=== PATIENT | female | born 1990 | race Hispanic/Latino ===

== ENCOUNTER 2017-08-17 02:00 | Emergency (ER) | payer OTHER ==
[2017-08-17 03:19] LABS: Basophils # (Auto) 0.1 K/mm3 (0.0-0.1); Basophils % (Auto) 0.8 % (0.0-1.8); Eosinophils # (Auto) 0.4 K/mm3 (0.0-0.4); Eosinophils % (Auto) 4.2 % (0.0-4.3); Hemoglobin 14.5 gm/dl (10.1-14.3); Lymphocytes # (Auto) 4.2 K/mm3 (1.2-5.4); Lymphocytes % (Auto) 44.7 % (13.4-35.0); Mean Corpuscular HGB Conc 34 % (30-34); Mean Corpuscular Hemoglobin 31 pg (28-32); Mean Corpuscular Volume 91 fl (79-97); Monocytes # (Auto) 0.6 K/mm3 (0.0-0.8); Monocytes % (Auto) 6.8 % (0.0-7.3); Platelet Count 187 K/mm3 (140-440); Red Blood Count 4.61 M/mm3 (3.65-5.03); Red Cell Distribution Width 13.8 % (13.2-15.2)
[2017-08-17 03:35] LABS: Alanine Aminotransferase 10 units/L (7-56); Albumin 4.4 g/dL (3.9-5); BUN/Creatinine Ratio 17; Blood Urea Nitrogen 10 mg/dL (7-17); Calcium 8.6 mg/dL (8.4-10.2); Hemolysis Index 29
[2017-08-17 04:01] LABS: Bacteria,Urine 1+ /HPF (Negative); Bilirubin,Urine NEG (Negative); Blood,Urine LG (Negative); Color,Urine Yellow (Yellow); Mucus,Urine FEW /HPF; Urobilinogen,Urine < 2.0 mg/dL (<2.0)
[2017-08-17 04:03] LABS: RBC,Urine > 182.0 /HPF (0.0-6.0)
[2017-08-17] MEDS ORDERED: TORADOL IM ONE (04:33)
--- NOTE | 2017-08-17 04:41 | Emergency Department Report ---
ED Female HPI - General Chief complaint: Abdominal Pain Stated complaint: HEAVY BLEEDING Time Seen by Provider: 08/17/17 04:28 Source: patient Mode of arrival: Ambulatory Limitations: No Limitations - History of Present Illness Initial comments: This is a healthy 26-year-old female who had her first menses since termination of one month ago. She has large amount of bleeding severe pelvic cramping. MD Complaint: vaginal bleeding, pelvic pain -: Gradual, days(s) (2) Severity: severe Quality: cramping Consistency: intermittent Are you Now?: No - Related Data Previous Rx's Medication Instructions Recorded Last Taken Type Ibuprofen [Motrin] 600 mg PO Q8H PRN #30 tablet 02/03/17 Unknown Rx traMADol [Ultram 50 MG tab] 50 mg PO Q6HR PRN #20 tablet 02/03/17 Unknown Rx Allergies Allergy/AdvReac Type Severity Reaction Status Date / Time No Known Allergies Allergy Unverified 02/03/17 14:32 ED Review of Systems ROS: Stated complaint: HEAVY BLEEDING Other details as noted in HPI Comment: All other systems reviewed and negative Constitutional: denies: fever, malaise Cardiovascular: denies: chest pain ED Past Medical Hx - Past Medical History Previous Medical History?: No - Surgical History Past Surgical History?: Yes Additional Surgical History: D&C - Social History Smoking Status: Current Every Day Smoker Substance Use Type: None - Medications Home Medications: Home Medications Medication Instructions Recorded Confirmed Last Taken Type Ibuprofen [Motrin] 600 mg PO Q8H PRN #30 tablet 02/03/17 Unknown Rx traMADol [Ultram 50 MG tab] 50 mg PO Q6HR PRN #20 tablet 02/03/17 Unknown Rx ED Physical Exam - General Limitations: No Limitations General appearance: alert, in no apparent distress - Head Head exam: Present: atraumatic, normocephalic - Eye Eye exam: Present: normal appearance - ENT ENT exam: Present: mucous membranes moist - Neck Neck exam: Present: normal inspection - Respiratory Respiratory exam: Present: normal lung sounds bilaterally. Absent: respiratory distress, wheezes, rales, rhonchi - Cardiovascular Cardiovascular Exam: Present: regular rate, normal rhythm, normal heart sounds. Absent: systolic murmur, diastolic murmur, rubs, gallop - GI/Abdominal GI/Abdominal exam: Present: soft, normal bowel sounds. Absent: distended, tenderness, guarding, rebound - Extremities Exam Extremities exam: Present: normal inspection - Back Exam Back exam: Present: normal inspection - Neurological Exam Neurological exam: Present: alert, oriented X3 - Psychiatric Psychiatric exam: Present: normal affect, normal mood - Skin Skin exam: Present: warm, dry, intact, normal color. Absent: rash ED Course Vital Signs 08/17/17 02:43 Temperature 98.5 F Pulse Rate 75 Respiratory 16 Rate Blood Pressure 128/72 O2 Sat by Pulse 97 Oximetry ED Medical Decision Making - Lab Data Result diagrams: 08/17/17 03:02 08/17/17 03:02 Laboratory Results - last 24 hr 08/17/17 08/17/17 08/17/17 03:02 03:02 03:02 WBC 9.4 RBC 4.61 Hgb 14.5 H Hct 42.0 MCV 91 MCH 31 MCHC 34 RDW 13.8 Plt Count 187 Lymph % (Auto) 44.7 H Giles % (Auto) 6.8 Eos % (Auto) 4.2 Baso % (Auto) 0.8 Lymph # 4.2 Giles # 0.6 Eos # 0.4 Baso # 0.1 Seg Neutrophils % 43.5 Seg Neutrophils # 4.1 Sodium 138 Potassium 4.1 Chloride 99.1 Carbon Dioxide 25 Anion Gap 18 BUN 10 Creatinine 0.6 L Estimated GFR > 60 BUN/Creatinine Ratio 17 Glucose 94 Calcium 8.6 Total Bilirubin 0.20 AST 28 ALT 10 Alkaline Phosphatase 74 Total Protein 7.2 Albumin 4.4 Albumin/Globulin Ratio 1.6 HCG, Quant < 2 Urine Color Urine Turbidity Urine pH Ur Specific [place] Urine Protein Urine Glucose (UA) Urine Ketones Urine Blood Urine Nitrite Urine Bilirubin Urine Urobilinogen Ur Leukocyte Esterase Urine WBC (Auto) Urine RBC (Auto) U Epithel Cells (Auto) Urine Bacteria (Auto) Urine Mucus Blood Type Antibody Screen 08/17/17 08/17/17 03:02 03:31 WBC RBC Hgb Hct MCV MCH MCHC RDW Plt Count Lymph % (Auto) Giles % (Auto) Eos % (Auto) Baso % (Auto) Lymph # Giles # Eos # Baso # Seg Neutrophils % Seg Neutrophils # Sodium Potassium Chloride Carbon Dioxide Anion Gap BUN Creatinine Estimated GFR BUN/Creatinine Ratio Glucose Calcium Total Bilirubin AST ALT Alkaline Phosphatase Total Protein Albumin Albumin/Globulin Ratio HCG, Quant Urine Color Yellow Urine Turbidity Clear Urine pH 5.0 Ur Specific [place] 1.018 Urine Protein 30 mg/dl Urine Glucose (UA) Neg Urine Ketones Neg Urine Blood Lg Urine Nitrite Neg Urine Bilirubin Neg Urine Urobilinogen < 2.0 Ur Leukocyte Esterase Neg Urine WBC (Auto) 7.0 H Urine RBC (Auto) > 182.0 U Epithel Cells (Auto) 3.0 Urine Bacteria (Auto) 1+ Urine Mucus Few Blood Type O POSITIVE Antibody Screen Negative Vital Signs - 24 hr 08/17/17 02:43 Temperature 98.5 F Pulse Rate 75 Respiratory 16 Rate Blood Pressure 128/72 O2 Sat by Pulse 97 Oximetry - Medical Decision Making Kasie is a healthy 26-year-old female who presents with dysmenorrhea. Pelvic ultrasound obtained with history of recent D&C. Critical care attestation.: If time is entered above; I have spent that time in minutes in the direct care of this critically ill patient, excluding procedure time. ED Disposition Clinical Impression: Dysmenorrhea Disposition: DC-01 TO HOME OR SELFCARE Is pt being admited?: No Does the pt Need Aspirin: No Condition: Stable Instructions: Dysmenorrhea (ED) Referrals: FANNY ROSADO MD [Staff Physician] - 3-5 Days Time of Disposition: 04:41
[2017-08-17] MEDS ORDERED: TORADOL ONE (04:51)
[2017-08-17] MEDS ORDERED: PERCOCET 5/325 ONE (05:27)
[2017-08-17] MEDS ORDERED: PERCOCET 5/325 PO ONE (05:27)
--- NOTE | 2017-08-17 05:43 | Ultrasound Report ---
FINAL REPORT PROCEDURE: US PELVIC COMPLETE TECHNIQUE: Real-time transabdominal sonography in multiple planes of the pelvis was performed with image documentation. Grayscale, color flow Doppler imaging and velocity spectral waveform analysis of the ovaries was employed (duplex imaging). CPT 61964 and 65648 HISTORY: pelvic pain one month after termination COMPARISON: No prior studies are available for comparison. FINDINGS: UTERUS Size: 9.3 x 4.2 x 5.5 cm. Endometrial thickness: There is focal thickening of the endometrium at 2 centimeters. This could be an area of endometrial hyperplasia, submucosal fibroid or possibly retained products of conception. Orientation: anteverted. Cervix: Normal. Fibroids/masses: None. RIGHT Ovary: 3.9 x 2.3 x 2.0 cm. Appearance: Normal. Doppler images: Normal spectral waveforms and color flow. The systolic and diastolic velocities are within normal limits. LEFT Ovary: 2.7 x 1.6 x 2.7 cm. Appearance: Normal. Doppler images: Normal spectral waveforms and color flow. The systolic and diastolic velocities are within normal limits. Pelvic fluid: None. Other: None. IMPRESSION: There is focal thickening of the endometrium at 2 centimeters. This could be an area of endometrial hyperplasia, submucosal fibroid or possibly retained products of conception. The ovaries are unremarkable. There is no free pelvic fluid.
--- NOTE | 2017-08-17 05:44 | Ultrasound Report ---
FINAL REPORT PROCEDURE: US PELVIC TRANSVAGINAL TECHNIQUE: Real-time transvaginal sonography in multiple planes of the pelvis was performed with image documentation. Grayscale, color flow Doppler imaging and velocity spectral waveform analysis of the ovaries was employed (duplex imaging). HISTORY: pelvic pain one month after termination COMPARISON: No prior studies are available for comparison. FINDINGS: UTERUS Size: 9.3 x 4.2 x 5.5 cm. Endometrial thickness: There is focal thickening of the endometrium at 2 centimeters. This could be an area of endometrial hyperplasia, submucosal fibroid or possibly retained products of conception. Orientation: anteverted. Cervix: Normal. Fibroids/masses: None. RIGHT Ovary: 3.9 x 2.3 x 2.0 cm. Appearance: Normal. Doppler images: Normal spectral waveforms and color flow. The systolic and diastolic velocities are within normal limits. LEFT Ovary: 2.7 x 1.6 x 2.7 cm. Appearance: Normal. Doppler images: Normal spectral waveforms and color flow. The systolic and diastolic velocities are within normal limits. Pelvic fluid: None. Other: None. IMPRESSION: There is focal thickening of the endometrium at 2 centimeters. This could be an area of endometrial hyperplasia, submucosal fibroid or possibly retained products of conception. The ovaries are unremarkable. There is no free pelvic fluid.
[2017-08-17 06:01] VITALS: BP 105/65
== END 2017-08-17 06:05 | disposition home or self-care (01) ==
LOC: ED 02:00
DX: N94.6 Dysmenorrhea, unspecified (principal); F17.200 Nicotine dependence, unspecified, uncomplicated
CPT/HCPCS: 36415; 76830; 76856; 80053; 81001; 84702; 85025; 86850; 86900; 86901; J1885

== ENCOUNTER 2017-08-30 16:31 | Emergency (ER) | payer OTHER ==
[2017-08-30 17:25] LABS: Basophils % (Auto) 0.4 % (0.0-1.8); Eosinophils # (Auto) 0.3 K/mm3 (0.0-0.4); Eosinophils % (Auto) 2.7 % (0.0-4.3); Hematocrit 40.3 % (30.3-42.9); Hemoglobin 13.2 gm/dl (10.1-14.3); Lymphocytes # (Auto) 3.4 K/mm3 (1.2-5.4); Lymphocytes % (Auto) 29.7 % (13.4-35.0); Mean Corpuscular HGB Conc 33 % (30-34); Mean Corpuscular Hemoglobin 31 pg (28-32); Mean Corpuscular Volume 94 fl (79-97); Monocytes # (Auto) 1.1 K/mm3 (0.0-0.8); Monocytes % (Auto) 9.5 % (0.0-7.3); Platelet Count 224 K/mm3 (140-440); Red Blood Count 4.32 M/mm3 (3.65-5.03); Red Cell Distribution Width 13.8 % (13.2-15.2)
[2017-08-30] MEDS ORDERED: NORCO 5/325 PO ONE (23:34)
--- NOTE | 2017-08-30 23:46 | Emergency Department Report ---
HPI - General Chief Complaint: Vaginal Bleeding Time Seen by Provider: 08/30/17 23:24 - HPI HPI: Room 2 The patient is a 26-year-old female presented with a chief complaint of vaginal bleeding. The patient states she had heavy bleeding last month prompting her to come to the emergency department. She states after her visit. The bleeding is stopped for approximately one week but her pain continued. The patient states the vaginal bleeding resumed and she is going through approximately 10 pads per day the patient says she's had suprapubic abdominal pain for several months. Of note the patient had a D&C performed approximately 3 months ago. Patient denies any history of fever or any other forms of pain. The patient is her pain score 10/10 Location: Genitourinary Duration: [See above] Quality: Cramping Severity: 01/08 Modifying factors: [see above] Context: [see above] Mode of transportation: [not driving] ED Past Medical Hx - Past Medical History Previous Medical History?: No - Surgical History Additional Surgical History: D&C - Family History Family history: no significant - Social History Smoking Status: Current Every Day Smoker (1 pack per day) Substance Use Type: None (denies illicit drug use), Alcohol (rarely) - Medications Home Medications: Home Medications Medication Instructions Recorded Confirmed Last Taken Type Ibuprofen [Motrin] 600 mg PO Q8H PRN #30 tablet 02/03/17 Unknown Rx Ibuprofen 800 mg PO Q6HR PRN #15 tablet 08/17/17 Unknown Rx oxyCODONE /ACETAMINOPHEN [Percocet 1 tab PO Q6HR PRN #10 tablet 08/17/17 Unknown Rx 5/325] traMADol [Ultram 50 MG tab] 50 mg PO Q6HR PRN #10 tablet 08/17/17 Unknown Rx Ibuprofen [Motrin 800 MG tab] 800 mg PO Q8HR PRN #20 tablet 08/31/17 Unknown Rx medroxyPROGESTERone ACETATE 10 mg PO QDAY #10 tablet 08/31/17 Unknown Rx [Provera] traMADol [Ultram] 50 mg PO Q6HR PRN #10 tablet 08/31/17 Unknown Rx ED Review of Systems ROS: Stated complaint: UTERUS PAIN Other details as noted in HPI Genitourinary: abnormal menses Physical Exam - Physical Exam Vital Signs: Vital Signs 08/30/17 08/30/17 08/30/17 16:36 23:02 23:08 Temperature 98.5 F Pulse Rate 96 H 73 Respiratory 16 11 L 18 Rate Blood Pressure 120/86 138/80 O2 Sat by Pulse 99 100 Oximetry Physical Exam: GENERAL: The patient is well-developed well-nourished female lying on stretcher not appearing to be in acute distress. [] HEENT: Normocephalic. Atraumatic. Extraocular motions are intact. Patient has moist mucous membranes. NECK: Supple. Trachea midline CHEST/LUNGS: Clear to auscultation. There is no respiratory distress noted. HEART/CARDIOVASCULAR: Regular. There is no tachycardia. There is no gallop rub or murmur. ABDOMEN: Abdomen is soft, with mild discomfort to palpation suprapubic and left lower quadrant. Patient has normal bowel sounds. There is no abdominal distention. SKIN: There is no rash. There is no edema. There is no diaphoresis. NEURO: The patient is awake, alert, and oriented. The patient is cooperative. The patient has normal speech MUSCULOSKELETAL: There is no evidence of acute injury. PELVIC: Scant amount of blood seen in the vaginal vault. No definite cervical lesions appreciated ED Course Vital Signs 08/30/17 08/30/17 08/30/17 16:36 23:02 23:08 Temperature 98.5 F Pulse Rate 96 H 73 Respiratory 16 11 L 18 Rate Blood Pressure 120/86 138/80 O2 Sat by Pulse 99 100 Oximetry ED Medical Decision Making - Lab Data Result diagrams: 08/30/17 16:57 Laboratory Tests 08/30/17 08/30/17 08/30/17 16:57 16:57 16:57 WBC 11.5 H RBC 4.32 Hgb 13.2 Hct 40.3 MCV 94 MCH 31 MCHC 33 RDW 13.8 Plt Count 224 Lymph % (Auto) 29.7 [place] % (Auto) 9.5 H Eos % (Auto) 2.7 Baso % (Auto) 0.4 Lymph # 3.4 [place] # 1.1 H Eos # 0.3 Baso # 0.0 Seg Neutrophils % 57.7 Seg Neutrophils # 6.6 HCG, Quant < 2 Blood Type O POSITIVE Antibody Screen Negative - Radiology Data Radiology results: report reviewed (pelvic ultrasound) Pelvic ultrasound (read by radiologist)-increasing prominence and thickness of the endometrial stripe compared to the recent transvaginal pelvic ultrasound. A central nodule appears to be present. - Differential Diagnosis menorrhagia Critical care attestation.: If time is entered above; I have spent that time in minutes in the direct care of this critically ill patient, excluding procedure time. ED Disposition Clinical Impression: Menorrhagia Disposition: TO HOME OR SELFCARE Is pt being admited?: No Does the pt Need Aspirin: No Condition: Stable Instructions: Menorrhagia (ED) Additional Instructions: Return to the emergency department immediately should you develop worsening symptoms, fever, inability to tolerate food or liquid or any other concerns. Prescriptions: Ibuprofen [Motrin 800 MG tab] 800 mg PO Q8HR PRN #20 tablet PRN Reason: Pain medroxyPROGESTERone ACETATE [Provera] 10 mg PO QDAY #10 tablet traMADol [Ultram] 50 mg PO Q6HR PRN #10 tablet PRN Reason: Pain Referrals: [facility] [Provider Group] - KIMBER RIVER MD [Staff Physician] - [facility] (Dr. Moore is an FLOORING MACHINE FEEDER) [facility] [Provider Group] - [facility] Time of Disposition: 01:37
[2017-08-31 02:36] VITALS: BP 121/65
--- NOTE | 2017-09-02 14:25 | Ultrasound Report ---
FINAL REPORT PROCEDURE: US PELVIC COMPLETE TECHNIQUE: Real-time transabdominal sonography in multiple planes of pelvis was performed with image documentation. This examination was performed without Doppler. Vascular abnormalities, including ovarian torsion, will not be detectable without Doppler evaluation. CPT 47340 HISTORY: menorrhagia. COMPARISON: Prior pelvic ultrasound 08/17/2017 FINDINGS: Uterus is retroverted. There appears to be an area of decreased echogenicity in the endometrial canal although poorly visualized with transabdominal scanning. The ovaries were not clearly visualized. No free fluid is seen. IMPRESSION: Limited study. Uterus is retroverted. Decreased echogenicity seen in the endometrial canal although poorly visualized with only transabdominal scanning. Transvaginal scanning is to follow.
--- NOTE | 2017-09-02 14:25 | Ultrasound Report ---
FINAL REPORT PROCEDURE: US TRANSVAGINAL TECHNIQUE: Real-time transvaginal sonography in multiple planes of the pelvis was performed with image documentation. This examination was performed without Doppler. Vascular abnormalities, including ovarian torsion, will not be detectable without Doppler evaluation. CPT 37997 HISTORY: menorrhagia. COMPARISON: Prior transvaginal pelvic ultrasound 08/17/2017, prior transabdominal pelvic ultrasound 08/31/2017 FINDINGS: With transvaginal scanning the uterus is better visualized. In the endometrial canal there is a complex structure distending the endometrial canal. Overall the endometrial stripe measures 3.2 centimeters. This has increased compared to the prior transvaginal pelvic ultrasound performed on 08/17/2017. Correlation with history and test recommended. This could represent retained products of conception or intrauterine demise. There is a central mixed hypoechoic nodule measuring 1.9 x 2.4 centimeters. Necrosing polyp could present this manner as could necrosis of a submucosal fibroid. With color flow imaging flow is seen surrounding the endometrial canal without flow extending into central aspect of the nodule. Uterus measures 7.9 x 4.9 x 5.7 centimeters. Right and left ovaries are unremarkable. No abnormal adnexal masses are seen. The right ovary measures 3.4 x 2.9 x 2.6 centimeter. The left ovary 2.8 x 1.3 x 1.4 centimeters. IMPRESSION: Increasing prominence in thickness of the endometrial stripe compared to the recent transvaginal pelvic ultrasound. A central nodule appears to be present as described above. Please see above for differential. Ovaries are unremarkable.
== END 2017-08-31 02:34 | disposition home or self-care (01) ==
LOC: ED 16:31
DX: N92.0 Excessive and frequent menstruation with regular cycle (principal); F17.200 Nicotine dependence, unspecified, uncomplicated
CPT/HCPCS: 36415; 76830; 76856; 84702; 85025; 86850; 86900; 86901

== ENCOUNTER 2017-09-08 00:21 | Emergency (ER) | payer OTHER ==
[2017-09-08 01:28] LABS: Basophils # (Auto) 0.1 K/mm3 (0.0-0.1); Basophils % (Auto) 0.6 % (0.0-1.8); Eosinophils # (Auto) 0.3 K/mm3 (0.0-0.4); Eosinophils % (Auto) 2.8 % (0.0-4.3); Hematocrit 35.9 % (30.3-42.9); Hemoglobin 11.6 gm/dl (10.1-14.3); Lymphocytes # (Auto) 3.8 K/mm3 (1.2-5.4); Mean Corpuscular HGB Conc 32 % (30-34); Mean Corpuscular Hemoglobin 30 pg (28-32); Mean Corpuscular Volume 92 fl (79-97); Monocytes # (Auto) 0.8 K/mm3 (0.0-0.8); Monocytes % (Auto) 7.1 % (0.0-7.3); Platelet Count 222 K/mm3 (140-440); Red Cell Distribution Width 13.1 % (13.2-15.2)
[2017-09-08 01:56] LABS: Alanine Aminotransferase 9 units/L (7-56); Albumin 4.5 g/dL (3.9-5); BUN/Creatinine Ratio 26; Blood Urea Nitrogen 18 mg/dL (7-17); Calcium 9.5 mg/dL (8.4-10.2); Hemolysis Index 21
[2017-09-08] MEDS ORDERED: PERCOCET 5/325 PO ONE (02:23)
--- NOTE | 2017-09-08 02:48 | Emergency Department Report ---
HPI - General Chief Complaint: Abdominal Pain Time Seen by Provider: 09/08/17 01:57 - HPI HPI: This is a 26-year-old female presents to the emergency department with the complaint of a 3-4 month history of some pelvic pain and heavy vaginal bleeding. The vaginal bleeding is intermittent but sometimes when it is at its most intense the patient says that she can fill up a pad in a matter of minutes. She has had a few evaluations in the past including transvaginal ultrasounds and says that she has been told that she has something in the uterus but it is a wide differential. She has been told that it could be retained products of retained conception, a fibroid, or something malignant. She has an appointment to see Dr. Vineet Moore, TRANSPORTATION REFRIGERATION TECHNICIAN, for the first time on of next week. She is already tried Provera for the bleeding without any relief. ED Past Medical Hx - Past Medical History Previous Medical History?: No - Surgical History Past Surgical History?: Yes Additional Surgical History: D&C - Social History Smoking Status: Current Every Day Smoker Substance Use Type: None - Medications Home Medications: Home Medications Medication Instructions Recorded Confirmed Last Taken Type Ibuprofen [Motrin] 600 mg PO Q8H PRN #30 tablet 02/03/17 Unknown Rx Ibuprofen 800 mg PO Q6HR PRN #15 tablet 08/17/17 Unknown Rx traMADol [Ultram 50 MG tab] 50 mg PO Q6HR PRN #10 tablet 08/17/17 Unknown Rx Ibuprofen [Motrin 800 MG tab] 800 mg PO Q8HR PRN #20 tablet 08/31/17 Unknown Rx medroxyPROGESTERone ACETATE 10 mg PO QDAY #10 tablet 08/31/17 Unknown Rx [Provera] traMADol [Ultram] 50 mg PO Q6HR PRN #10 tablet 08/31/17 Unknown Rx oxyCODONE /ACETAMINOPHEN [Percocet 1 tab PO Q6HR PRN #10 tablet 09/08/17 Unknown Rx 5/325 mg] ED Review of Systems ROS: Stated complaint: VAG BLEEDING Other details as noted in HPI Comment: All other systems reviewed and negative Constitutional: denies: chills, fever Eyes: denies: eye pain, eye discharge, vision change ENT: denies: ear pain, throat pain Respiratory: denies: cough, shortness of breath, wheezing Cardiovascular: denies: chest pain, palpitations Gastrointestinal: denies: nausea, vomiting Genitourinary: other (menorrhagia, pelvic pain) Musculoskeletal: denies: back pain, arthralgia Skin: denies: rash, lesions Neurological: denies: headache, weakness, paresthesias Physical Exam - Physical Exam Vital Signs: Vital Signs 09/08/17 00:36 Temperature 98.8 F Pulse Rate 78 Respiratory 14 Rate Blood Pressure 115/70 O2 Sat by Pulse 98 Oximetry Physical Exam: GENERAL: The patient is well-developed well-nourished. HENT: Normocephalic. Atraumatic. Patient has moist mucous membranes. EYES: Extraocular motions are intact. NECK: Supple. Trachea is midline. CHEST/LUNGS: Clear to auscultation. There is no respiratory distress noted. HEART/CARDIOVASCULAR: Regular. There is no tachycardia. There is no murmur. ABDOMEN: Abdomen is soft, nontender. Patient has normal bowel sounds. There is no abdominal distention. SKIN: Skin is warm and dry. NEURO: The patient is awake, alert, and oriented. The patient is cooperative. The patient has no focal neurologic deficits. The patient has normal speech. MUSCULOSKELETAL: There is no tenderness or deformity. There is no limitation range of motion. There is no evidence of acute injury. ED Course Vital Signs 09/08/17 00:36 Temperature 98.8 F Pulse Rate 78 Respiratory 14 Rate Blood Pressure 115/70 O2 Sat by Pulse 98 Oximetry - Consultations Consultation #1: I spoke with the TRANSPORTATION REFRIGERATION TECHNICIAN for the patient, Dr. Vineet Moore, since the patient has an appointment coming up next . He was into the case presentation, labs and imaging results. Since the patient is already on Provera, he did not have any recommendations on any other medications to start regarding the menorrhagia. He will see the patient during her appointment on . 09/08/17 04:09 ED Medical Decision Making - Lab Data Result diagrams: 09/08/17 01:07 09/08/17 01:07 - Radiology Data Radiology results: report reviewed Transvaginal/pelvic ultrasound with Doppler shows a homogenous normal-appearing endometrium measuring 11.3 mm in thickness. Normal-appearing ovaries revealing benign follicles. No evidence of ovarian torsion. - Medical Decision Making The patient has been dealing with 3-4 months of some heavy dysfunctional uterine bleeding and some pelvic discomfort. Previous ultrasounds, that were reviewed, did show some type of nodule or growth and previously she was given multiple differentials including products of retained conception, necrosis and fibroid and malignancy. The ultrasound repeated today is normal without any of those previous findings or concerns. The labs are normal as well with a hemoglobin of 11.6. The patient is not . Vital signs stable including being afebrile. The patient has an appointment coming up in 5 days and will keep that appointment. She will be prescribed pain medication. She has been encouraged to return to the emergency Department with any worsening of her symptoms or any acute distress. - Differential Diagnosis dysfunctional uterine bleeding, torsion, fibroids, malignancy Critical Care Time: No Critical care attestation.: If time is entered above; I have spent that time in minutes in the direct care of this critically ill patient, excluding procedure time. ED Disposition Clinical Impression: Dysfunctional uterine bleeding Menorrhagia Qualifiers: Menorrahagia type: with irregular cycle Qualified Code(s): N92.1 - Excessive and frequent menstruation with irregular cycle Disposition: TO HOME OR SELFCARE Is pt being admited?: No Condition: Stable Instructions: Dysfunctional Uterine Bleeding (ED), Menorrhagia (ED) Additional Instructions: Please follow-up with your TRANSPORTATION REFRIGERATION TECHNICIAN this coming as previously scheduled. Return to the emergency Department with any worsening of your symptoms or any acute distress. You have been prescribed a medication that is sedating and therefore should not be taken prior to driving, working, and responsible for children and in no way should be mixed with alcohol of any quantity. Prescriptions: oxyCODONE /ACETAMINOPHEN [Percocet 5/325 mg] 1 tab PO Q6HR PRN #10 tablet PRN Reason: Pain Referrals: KIMBER MOORE MD [Staff Physician] - 09/12/17 Time of Disposition: 04:12
--- NOTE | 2017-09-08 03:25 | Ultrasound Report ---
FINAL REPORT EXAM: US TRANSVAGINAL HISTORY: pelvic pain, heavy vag bleeding, abnormal ultrasou TECHNIQUE: Transvaginal imaging was obtained of the pelvis including Doppler interrogation of the adnexa. Comparison is made to the study of 08/31/2017. FINDINGS: The uterus is retroflexed measuring 7.3 cm x 4.3 cm x 6.3 cm. At this time the endometrial thickness is 11.3 mm and is relatively homogeneous. Free fluid is not seen. The ovaries are appropriate and in size, blood flow and echotexture. Both ovaries reveal benign-appearing follicles. The right ovary measures 2.8 cm x 2.1 cm x 2.2 cm. The left ovary measures 2.1 cm x 1.2 cm by 1.9 cm. IMPRESSION: Normal-appearing secretory endometrium measuring 11.3 mm in thickness. Normal-appearing ovaries revealing benign-appearing follicles. No evidence of ovarian torsion. No evidence of free fluid.
--- NOTE | 2017-09-08 03:27 | Ultrasound Report ---
FINAL REPORT EXAM: US PELVIS DUPLEX DOPPLER COMP HISTORY: pelvic pain, heavy vag bleeding, abnormal ultrasou TECHNIQUE: Routine transabdominal imaging was obtained of the pelvis with Doppler interrogation of the adnexa. Comparison is made to the study of 08/31/2017. FINDINGS: The uterus is retroflexed measures 7.3 cm x 4.3 cm x 6.3 cm. The endometrium is homogeneous in echotexture and measures 11.3 mm in thickness. Free fluid is not seen. The ovaries are appropriate size contour blood flow and echotexture revealing benign-appearing follicles. The right ovary measures 2.8 cm x 2.1 cm x 2.2 cm. The left ovary measures 2.1 cm x 1.2 cm x 1.9 cm. IMPRESSION: Homogeneous normal-appearing secretory endometrium measuring 11.3 mm in thickness. Normal-appearing ovaries revealing benign follicles. No evidence of ovarian torsion.
[2017-09-08 05:01] VITALS: BP 122/82
== END 2017-09-08 05:02 | disposition home or self-care (01) ==
LOC: ED 00:21
DX: N93.8 Other specified abnormal uterine and vaginal bleeding (principal); N92.1 Excessive and frequent menstruation with irregular cycle; F17.200 Nicotine dependence, unspecified, uncomplicated
CPT/HCPCS: 36415; 76830; 80053; 84703; 85025; 93975

== ENCOUNTER 2017-12-16 20:47 | Emergency (ER) | payer OTHER ==
[2017-12-16] MEDS ORDERED: DECADRON IM ONE (23:54)
[2017-12-16] MEDS ORDERED: ULTRAM PO ONE (23:54)
[2017-12-16] MEDS ORDERED: BENADRYL PO ONE (23:54)
[2017-12-16] MEDS ORDERED: REGLAN PO ONE (23:54)
[2017-12-16] MEDS ORDERED: BANOPHEN PO ONE (23:54)
--- NOTE | 2017-12-17 00:04 | Emergency Department Report ---
ED Headache HPI - General Chief Complaint: Headache Stated Complaint: PRATT Time Seen by Provider: 12/16/17 23:35 - History of Present Illness Initial Comments: Patient is a 26-year-old white female history of migraine headache left temporal last 3 years treated with Excedrin Migraine [id number] NSAIDs process or same tonight 09/08 left temporal sharp mild photophobia and no nausea and vomiting no visual changes no dizziness no blurred vision no shortness of breath no nausea vomiting this is same location same duration same intensity as usual headache patient request and Dilaudid Timing/Duration: other (2 months) Quality: moderate Head Injury Location: temporal Recent Head Trauma: chronic headaches Allergies/Adverse Reactions: Allergies No Known Allergies Allergy (Unverified 02/03/17 14:32) Home Medications: Ambulatory Orders Ibuprofen [Motrin] 600 mg PO Q8H PRN #30 tablet 02/03/17 Ibuprofen 800 mg PO Q6HR PRN #15 tablet 08/17/17 traMADol [Ultram 50 MG tab] 50 mg PO Q6HR PRN #10 tablet 08/17/17 Ibuprofen [Motrin 800 MG tab] 800 mg PO Q8HR PRN #20 tablet 08/31/17 medroxyPROGESTERone ACETATE [Provera] 10 mg PO QDAY #10 tablet 08/31/17 traMADol [Ultram] 50 mg PO Q6HR PRN #10 tablet 08/31/17 oxyCODONE /ACETAMINOPHEN [Percocet 5/325 mg] 1 tab PO Q6HR PRN #10 tablet Metoclopramide [Reglan] 10 mg PO ACHS PRN #30 tablet 12/17/17 diphenhydrAMINE [Benadryl CAP] 25 mg PO Q6HR PRN #30 capsule 12/17/17 traMADol [Ultram] 50 mg PO Q6HR PRN #12 tablet 12/17/17 ED Review of Systems ROS: Stated complaint: PRATT Other details as noted in HPI Constitutional: denies: chills, fever Eyes: denies: eye pain, eye discharge, vision change ENT: denies: ear pain, throat pain Respiratory: denies: cough, shortness of breath, wheezing Cardiovascular: denies: chest pain, palpitations Endocrine: no symptoms reported Gastrointestinal: denies: abdominal pain, nausea, diarrhea Genitourinary: as per HPI Musculoskeletal: denies: back pain, joint swelling, arthralgia Skin: denies: rash, lesions Neurological: headache. denies: weakness, numbness, paresthesias, confusion, abnormal gait, vertigo Psychiatric: denies: anxiety, depression Hematological/Lymphatic: denies: easy bleeding, easy bruising ED Past Medical Hx - Past Medical History Hx Headaches / Migraines: Yes - Surgical History Additional Surgical History: D&C - Social History Smoking Status: Current Every Day Smoker Substance Use Type: None - Medications Home Medications: Home Medications Medication Instructions Recorded Confirmed Last Taken Type Ibuprofen [Motrin] 600 mg PO Q8H PRN #30 tablet 02/03/17 Unknown Rx Ibuprofen 800 mg PO Q6HR PRN #15 tablet 08/17/17 Unknown Rx traMADol [Ultram 50 MG tab] 50 mg PO Q6HR PRN #10 tablet 08/17/17 Unknown Rx Ibuprofen [Motrin 800 MG tab] 800 mg PO Q8HR PRN #20 tablet 08/31/17 Unknown Rx medroxyPROGESTERone ACETATE 10 mg PO QDAY #10 tablet 08/31/17 Unknown Rx [Provera] traMADol [Ultram] 50 mg PO Q6HR PRN #10 tablet 08/31/17 Unknown Rx oxyCODONE /ACETAMINOPHEN [Percocet 1 tab PO Q6HR PRN #10 tablet 09/08/17 Unknown Rx 5/325 mg] Metoclopramide [Reglan] 10 mg PO ACHS PRN #30 tablet 12/17/17 Unknown Rx diphenhydrAMINE [Benadryl CAP] 25 mg PO Q6HR PRN #30 capsule 12/17/17 Unknown Rx traMADol [Ultram] 50 mg PO Q6HR PRN #12 tablet 12/17/17 Unknown Rx ED Physical Exam - General Limitations: No Limitations General appearance: alert, in no apparent distress - Head Head exam: Present: atraumatic, normocephalic - Eye Eye exam: Present: normal appearance, PERRL, EOMI. Absent: conjunctival injection Pupils: Present: normal accommodation - ENT ENT exam: Present: mucous membranes moist - Neck Neck exam: Present: normal inspection - Respiratory Respiratory exam: Present: normal lung sounds bilaterally. Absent: respiratory distress, chest wall tenderness - Cardiovascular Cardiovascular Exam: Present: regular rate, normal rhythm. Absent: systolic murmur, diastolic murmur, rubs, gallop - GI/Abdominal GI/Abdominal exam: Present: soft, normal bowel sounds - Rectal Rectal exam: Present: deferred - Extremities Exam Extremities exam: Present: normal inspection - Back Exam Back exam: Present: normal inspection - Neurological Exam Neurological exam: Present: alert, oriented X3, CN II-XII intact, normal gait, reflexes normal. Absent: motor sensory deficit - Expanded Neurological Exam Expanded Patient oriented to: Present: person, place, time Speech: Present: fluid speech Cranial nerves: EOM's Intact: Normal, Gag Reflex: Normal, Tongue Deviation: Normal, Nystagmus: Normal, Facial Sensation: Normal Cerebellar function: Finger to Nose: Normal Upper motor neuron: Nav Neglect: Normal, Pronator Drift: Normal, Babinski Sign : Normal, Sensory Extinction: Normal Motor strength exam: RUE: 5, LUE: 5, RLE: 5, LLE: 5 Best Eye Response (Aragon): (4) open spontaneously Best Motor Response (Aragon): (6) obeys commands Best Verbal Response (Aragon): (5) oriented Aragon Total: 15 - Psychiatric Psychiatric exam: Present: normal affect - Skin Skin exam: Present: warm, dry, intact, normal color. Absent: rash ED Course Vital Signs 12/16/17 12/16/17 21:00 21:08 Temperature 98.9 F 98.9 F Pulse Rate 80 79 Respiratory 18 18 Rate Blood Pressure 126/66 126/60 O2 Sat by Pulse 98 98 Oximetry ED Medical Decision Making - Medical Decision Making this is a chronic headache condition for past 3 years exacerbations 2-3 times a week per patient same location same duration same intensity Benji resolved with NSAIDs occasionally requiring Dilaudid for patient has no photophobia this time no nausea vomiting no dizziness no visual changes patient is tolerating by mouth intake there is no acute distress patient treated with Decadron and Reglan Benadryl Ultram DC'd on that same patient given a referral to outpatient neurology for headache workup patient verbalizes understanding and agreement same place for DC'd to home in stable condition at this time with improved improved headache pain, pt has no controlled prescriptions liste on [place] PM Aware Critical care attestation.: If time is entered above; I have spent that time in minutes in the direct care of this critically ill patient, excluding procedure time. ED Disposition Clinical Impression: Chronic headache Qualifiers: Headache type: cluster Intractability: intractable Qualified Code(s): G44.021 - Chronic cluster headache, intractable Cluster headache Qualifiers: Headache chronicity pattern: chronic headache Intractability: intractable Qualified Code(s): G44.021 - Chronic cluster headache, intractable Disposition: DC-01 TO HOME OR SELFCARE Is pt being admited?: No Does the pt Need Aspirin: No Condition: Good Instructions: Cluster Headache (ED), Acute Headache (ED) Additional Instructions: [facility] [place] [address] Prescriptions: diphenhydrAMINE [Benadryl CAP] 25 mg PO Q6HR PRN #30 capsule PRN Reason: Headache Metoclopramide [Reglan] 10 mg PO ACHS PRN #30 tablet PRN Reason: Headache traMADol [Ultram] 50 mg PO Q6HR PRN #12 tablet PRN Reason: Pain Referrals: ROBERT QUIJANO MD [Referring] - 3-5 Days Forms: Work/School Release Form(ED) Time of Disposition: 00:13
[2017-12-17 01:01] VITALS: BP 120/66
== END 2017-12-17 01:04 | disposition home or self-care (01) ==
LOC: ED 20:47
DX: G44.021 Chronic cluster headache, intractable (principal); F17.200 Nicotine dependence, unspecified, uncomplicated; Z79.899 Other long term (current) drug therapy
CPT/HCPCS: 96372; 99282; J1100